=== PATIENT | male | born 1975 | race Caucasian/White ===

== ENCOUNTER 2019-06-25 20:00 | Emergency (ER) | payer SELFPAY ==
[~2019-06-25] VITALS: Ht 172.7 cm; Wt 95.7 kg
[2019-06-25 20:09] VITALS: BP 155/96
--- NOTE | 2019-06-25 20:17 | NUR ---
PT AMBULATED TO ER BED 8
--- NOTE | 2019-06-25 20:30 | NUR ---
44 Y/O MALE PRESENTS TO ED, C/O ABDOMINAL PAIN STARTED 10 HOURS PRIOR TO COMING TO ED. PT STATES PAIN IS 8/10. BS ACTIVE X4 QUADRANTS. ABDOMEN IS FLAT, SOFT AND NONTENDER. PT DENIES ANY SOB OR CHEST PAIN. PT AT STABLE CONDITION. ERMD AWARE. WILL CONTINUE TO MONITOR.
[2019-06-25] MEDS ORDERED: NACL 0.9% 1,000 ML IV ONE (20:35)
[2019-06-25] MEDS ORDERED: KETOROLAC 30 MG/ML VIAL IVP ONE (20:35)
[2019-06-25 20:57] LABS: BASOPHILS % (AUTO) 0.3 % (0.0-2.0); EOSINOPHILS # (AUTO) 0.1 K/uL (0-0.4); EOSINOPHILS % (AUTO) 0.4 % (0.0-4.0); HEMATOCRIT 47.8 % (36-52); HEMOGLOBIN 15.9 g/dL (12.0-18.0); LYMPHOCYTES # (AUTO) 1.5 K/uL (2.0-11.5); LYMPHOCYTES % (AUTO) 10.2 % (20.5-51.1); MEAN CORPUSCULAR HEMOGLOBIN 29 pg (27-31); MEAN CORPUSCULAR HGB CONC 33 g/dL (33-37); MEAN CORPUSCULAR VOLUME 86.7 fL (80-94); MONOCYTES # (AUTO) 1.3 K/uL (0.8-1.0); MONOCYTES % (AUTO) 8.4 % (1.7-9.3); NEUTROPHILS # (AUTO) 12.1 K/uL (1.8-7.7); NEUTROPHILS % (AUTO) 80.7 % (42.2-75.2); PLATELET COUNT (AUTO) 238 K/uL (140-450); RED BLOOD CELL COUNT(AUTO) 5.51 MIL/uL (4.20-6.10); RED CELL DISTRIBUTION WIDTH 13.1 % (11.6-13.7)
[2019-06-25 21:02] LABS: APPEARANCE,URINE CLEAR (CLEAR); BILIRUBIN,URINE NEGATIVE (NEGATIVE); BLOOD, URINE 2+ (NEGATIVE); LEUKOCYTE ESTERASE ,URINE NEGATIVE (NEGATIVE); NITRITE, URINE NEGATIVE (NEGATIVE); UGLUCOSE NEGATIVE (NEGATIVE)
--- NOTE | 2019-06-25 21:03 | NUR ---
PT TAKEN TO CT VIA W/C
[2019-06-25 21:06] LABS: COLOR,URINE YELLOW (YELLOW)
[2019-06-25 21:07] LABS: ANION GAP 13.5 (8-16); CARBON DIOXIDE 29.4 mmol/L (21-32); CREATININE 1.4 mg/dL (0.7-1.3); POTASSIUM 3.9 mmol/L (3.5-5.1)
[2019-06-25 21:13] LABS: ALBUMIN 4.4 g/dL (3.4-5.0); TOTAL BILIRUBIN 1.1 mg/dL (0.0-1.0)
--- NOTE | 2019-06-25 21:20 | NUR ---
PT RETURNED FROM CT VIA WC
[2019-06-25 21:22] LABS: WBC,URINE 0-5 /HPF (0-5)
[2019-06-25 21:50] VITALS: BP 155/96
--- NOTE | 2019-06-25 21:50 | NUR ---
PT DISCHARGED WITH PAPERWORK. RX FLOMAX, MOTRIN, NORCO. EDUCATED PT REGARDING MEDICATIONS AND S/E. EDUCATED PT REGARDING D/C DIAGNOSIS AND INSTRUCTIONS. PT VERBALIZED UNDERSTANDING OF TEACHING. TOLD PT TO FOLLOW UP WITH PCP AND WHEN TO RETURN TO ED. PT STABLE CONDITION. ALL QUESTIONS ANSWERED.
== END 2019-06-25 21:50 | disposition home or self-care (01) ==
LOC: MED 20:00
DX: N20.0 Calculus of kidney (principal)
CPT/HCPCS: 36415; 74176; 80053; 81001; 83690; 85025; 96361; 96374; 99284; J1885; J7030